=== PATIENT | female | born 1940 | race Caucasian/White ===

== ENCOUNTER 2024-08-30 14:23 | Inpatient (IN) | payer OTHER ==
[~2024-08-30] VITALS: Ht 172.7 cm; Wt 50.3 kg
[2024-08-30 16:10] VITALS: BP 123/69; PULSE 90; RESP 18; TEMP 98.4; O2SAT 100
[2024-08-30] MEDS ORDERED: MELATONIN 3 MG TABLET PO PRN (17:30)
[2024-08-30] MEDS ORDERED: ONDANSETRON 4 MG TABLET PO PRN (17:30)
[2024-08-30 20:30] VITALS: BP 117/65; PULSE 84; RESP 18; TEMP 98.4; O2SAT 96
[2024-08-30] MEDS: -LIDODERM PATCH NOTE- MISC SCH (20:36)
[2024-08-30] MEDS: ETHYL ALCOHOL 62% ANTISEPTIC NASAL SANITIZER 0.6 ML AMPUL NASAL SCH (20:37)
[2024-08-30] MEDS: DOCUSATE SODIUM 100 MG CAPSULE PO SCH (20:38)
[2024-08-30] MEDS: OxyCODONE HCL 5 MG IR TABLET PO PRN (20:39)
[2024-08-30] MEDS: APIXABAN 2.5 MG TABLET PO SCH (20:39)
[2024-08-30] MEDS: METOPROLOL TARTRATE 25 MG TABLET PO SCH (20:39)
[2024-08-30] MEDS: SENNOSIDES 8.6 MG TABLET PO SCH (21:00)
[2024-08-30 22:54] VITALS: O2SAT 96
[2024-08-31 08:00] VITALS: BP 116/65; PULSE 84; RESP 19; TEMP 98.8; O2SAT 99
[2024-08-31] MEDS: ROSUVASTATIN CALCIUM 10 MG TABLET PO SCH (08:41)
[2024-08-31] MEDS: LOSARTAN POTASSIUM 25 MG TABLET PO SCH (08:41)
[2024-08-31] MEDS: MULTIVITAMINS WITH MINERALS, THERAPEUTIC TABLET PO SCH (08:42)
[2024-08-31] MEDS: LIDOCAINE 5% TRANSDERMAL PATCH TD SCH (08:42)
[2024-08-31 08:53] LABS: BASOPHILS % (AUTO) 0.8 % (0.0-2.0); EOSINOPHILS % (AUTO) 2.7 % (1.0-6.0); HEMOGLOBIN 10.1 g/dL (12.0-16.0); LYMPHOCYTES % (AUTO) 19.1 % (22.0-44.0); MEAN CORPUSCULAR HEMOGLOBIN 28.9 pg (26.0-34.0); MEAN CORPUSCULAR HGB CONC 32.5 G/dL (31.0-37.0); MEAN CORPUSCULAR VOLUME 89 fL (80-100); MONOCYTES # (AUTO) 0.6 K/uL (0.1-1.0); MONOCYTES % (AUTO) 11.6 % (2.0-9.0); NEUTROPHILS # (AUTO) 3.4 K/uL (1.8-7.7); NEUTROPHILS % (AUTO) 65.8 % (40.0-70.0); PLATELET COUNT (AUTO) 254 K/uL (150-450); RED BLOOD CELL COUNT(AUTO) 3.48 MIL/uL (4.00-5.20); RED CELL DISTRIBUTION WIDTH 14.1 % (11.5-14.5); WHITE BLOOD COUNT (AUTO) 5.2 K/uL (4.5-11.0)
[2024-08-31 10:45] LABS: ALANINE AMINOTRANSFERASE 53 U/L (12-78); ALBUMIN 2.3 g/dL (3.4-5.0); ALKALINE PHOSPHATASE 184 U/L (46-116); ANION GAP 9 mmol/L (8-16); ASPARTATE AMINOTRANSFERASE 54 U/L (15-37); BILIRUBIN,TOTAL 0.6 mg/dL (0.1-1.0); CARBON DIOXIDE 27 mmol/L (22-29); CHLORIDE 101 mmol/L (98-107); CREATININE 0.42 mg/dL (0.60-1.30); GLOMERULAR FILTR. RATE CALC > 60 mL/min (>60); GLUCOSE,RANDOM 102 mg/dL (70-110); POTASSIUM 3.6 mmol/L (3.5-5.1); SODIUM SERUM 137 mmol/L (136-145); TOTAL PROTEIN, SERUM 5.8 g/dL (6.4-8.2); UREA NITROGEN, BLOOD 12 mg/dL (7-18)
[2024-08-31] MEDS: BISACODYL 10 MG RECTAL RECTAL SUPPOSITORY PR PRN (14:47)
[2024-08-31 20:00] VITALS: BP 100/50; PULSE 95; RESP 18; TEMP 96.8; O2SAT 100; O2SAT 99
[2024-08-31 21:00] VITALS: BP 101/53; PULSE 93; RESP 18; TEMP 96.3; O2SAT 100
[2024-08-31] MEDS: AMOX TR/POT CLAV 875 MG/125 MG TABLET PO SCH (21:29)
[2024-08-31] MEDS: LACTOBAC ACID/BULG/BIFID/THERM TABLET PO SCH (21:30)
[2024-09-01 08:00] VITALS: BP 105/66; PULSE 77; RESP 17; TEMP 98.9; O2SAT 98
[2024-09-01] MEDS: OxyCODONE HCL 5 MG IR TABLET PO PRN (08:44)
[2024-09-01 10:45] VITALS: BP 103/66; PULSE 70; RESP 18; TEMP 98.2; O2SAT 98
[2024-09-01 20:00] VITALS: BP 118/67; PULSE 94; RESP 18; TEMP 98.4; O2SAT 100
[2024-09-01] MEDS: DOCUSATE SODIUM 250 MG CAPSULE PO SCH (21:04)
[2024-09-02 01:26] VITALS: BP 115/67; RESP 18; TEMP 98.1; O2SAT 98
[2024-09-02 07:12] VITALS: BP 109/68; PULSE 88; RESP 18; TEMP 98.3
[2024-09-02 08:10] VITALS: BP 113/57; PULSE 80; RESP 17; TEMP 98.8; O2SAT 99
[2024-09-02] MEDS: LOSARTAN POTASSIUM 25 MG TABLET PO SCH (09:10)
[2024-09-02] MEDS: LACTULOSE 20 GM/30 ML SOLUTION UDCUP PO PRN (16:09)
[2024-09-02 19:42] VITALS: BP 117/67; PULSE 94; RESP 18; TEMP 97.5; O2SAT 96
[2024-09-02 22:57] VITALS: O2SAT 96
[2024-09-03] MEDS: ACETAMINOPHEN 325 MG TABLET PO PRN (05:53)
[2024-09-03 08:20] VITALS: BP 105/69; PULSE 86; RESP 18; TEMP 97.9; O2SAT 96
[2024-09-03] MEDS: [UNRECOGNIZED DRUG - REMARK] PO SCH (09:21)
[2024-09-03 19:41] VITALS: O2SAT 96
[2024-09-03 19:42] VITALS: BP 102/51; PULSE 81; RESP 16; TEMP 98.2; O2SAT 96
[2024-09-03 20:00] VITALS: O2SAT 96
[2024-09-03 21:15] VITALS: BP 102/66; PULSE 87
[2024-09-04 07:40] VITALS: BP 102/58; PULSE 80; RESP 18; TEMP 98.4; O2SAT 99
[2024-09-04 08:00] VITALS: O2SAT 99
[2024-09-04] MEDS: CHOLECALCIFEROL (VIT D3) 1,000 UNITS [25 MCG] TABLET PO SCH (09:26)
[2024-09-04 20:00] VITALS: BP 110/62; PULSE 85; RESP 18; O2SAT 98
[2024-09-05 08:00] VITALS: BP 105/67; PULSE 79; RESP 20; TEMP 98.2; O2SAT 100
[2024-09-05 08:16] LABS: HEMATOCRIT 29.9 % (36-46); HEMOGLOBIN 9.9 g/dL (12.0-16.0); LYMPHOCYTES # (AUTO) 0.9 K/uL (1.0-4.8); MEAN CORPUSCULAR HGB CONC 33.2 G/dL (31.0-37.0); MEAN CORPUSCULAR VOLUME 87 fL (80-100); MONOCYTES # (AUTO) 0.9 K/uL (0.1-1.0); MONOCYTES % (AUTO) 13.7 % (2.0-9.0); NEUTROPHILS # (AUTO) 4.5 K/uL (1.8-7.7); NEUTROPHILS % (AUTO) 70.3 % (40.0-70.0); PLATELET COUNT (AUTO) 412 K/uL (150-450); RED BLOOD CELL COUNT(AUTO) 3.43 MIL/uL (4.00-5.20); RED CELL DISTRIBUTION WIDTH 14.1 % (11.5-14.5); WHITE BLOOD COUNT (AUTO) 6.4 K/uL (4.5-11.0)
[2024-09-05 08:33] LABS: ANION GAP 5 mmol/L (8-16); CALCIUM, TOTAL 9.2 mg/dL (8.8-10.5); CARBON DIOXIDE 32 mmol/L (22-29); CHLORIDE 101 mmol/L (98-107); CREATININE 0.53 mg/dL (0.60-1.30); GLOMERULAR FILTR. RATE CALC > 60 mL/min (>60); GLUCOSE,RANDOM 95 mg/dL (70-110); POTASSIUM 3.7 mmol/L (3.5-5.1); SODIUM SERUM 138 mmol/L (136-145); UREA NITROGEN, BLOOD 17 mg/dL (7-18)
[2024-09-05 19:33] VITALS: BP 96/52; PULSE 69; RESP 18; TEMP 98.2; O2SAT 98
[2024-09-05] MEDS: AQUAPHOR OINTMENT 50 GM TUBE TP PRN (21:49)
[2024-09-05 21:50] VITALS: BP 97/54; PULSE 89
[2024-09-05 23:44] VITALS: O2SAT 98
[2024-09-06] MEDS ORDERED: METO25 PO (05:05)
[2024-09-06] MEDS ORDERED: APIX2.5T PO (05:05)
[2024-09-06] MEDS ORDERED: DOCU-412 PO (05:08)
[2024-09-06] MEDS ORDERED: MULT-1303 PO (05:08)
[2024-09-06] MEDS ORDERED: LIDO-57 TP (05:08)
[2024-09-06] MEDS ORDERED: ROSU10TA72 PO (05:08)
[2024-09-06 08:00] VITALS: BP 110/65; PULSE 75; RESP 18; TEMP 98.4; O2SAT 100
[2024-09-06 09:23] VITALS: BP 110/65; PULSE 75; RESP 18; TEMP 98.4; O2SAT 100
[2024-09-06 20:02] VITALS: BP 111/56; PULSE 106; RESP 18; TEMP 98.8; O2SAT 98
[2024-09-06] MEDS: APIXABAN 2.5 MG TABLET PO SCH (20:11)
[2024-09-06] MEDS: methocarbamoL 500 MG TABLET PO PRN (20:55)
[2024-09-07 03:46] VITALS: O2SAT 98
[2024-09-07 08:00] VITALS: BP 114/63; PULSE 74; RESP 18; TEMP 98.2; O2SAT 96
[2024-09-07 20:06] VITALS: BP 107/55; PULSE 95; RESP 18; TEMP 98.4; O2SAT 98
[2024-09-07 20:36] VITALS: BP 91/58; PULSE 95; RESP 18; O2SAT 96
[2024-09-08] VITALS: O2SAT 98
[2024-09-08 08:00] VITALS: BP 105/57; PULSE 71; RESP 19; TEMP 98.4; O2SAT 97
[2024-09-08] MEDS ORDERED: METO25 PO (12:56)
[2024-09-08] MEDS ORDERED: APIX2.5T PO (12:56)
[2024-09-08] MEDS ORDERED: ROSU10TA72 PO (12:56)
[2024-09-08] MEDS ORDERED: CHOL25TA4 PO (12:56)
[2024-09-08] MEDS ORDERED: MULT-1303 PO (12:56)
[2024-09-08] MEDS ORDERED: DOCU-412 PO (12:56)
[2024-09-08 20:30] VITALS: BP 95/52; PULSE 95; RESP 18; TEMP 98.1; O2SAT 98
[2024-09-08 22:29] VITALS: O2SAT 98
[2024-09-09 06:45] VITALS: BP 101/58; PULSE 79
[2024-09-09 08:50] VITALS: BP 114/61; PULSE 85; RESP 18; TEMP 98.1; O2SAT 97
== END 2024-09-09 12:05 | disposition home health service (06) | DRG 949 ==
LOC: 2WR 16:08
PROVIDERS: ADMIT Physical Medicine & Rehabilitation; ATTEND Physical Medicine & Rehabilitation
DX: S06.9X9D Unspecified intracranial injury with loss of consciousness of unspecified duration, subsequent encounter (principal); D62 Acute posthemorrhagic anemia; E46 Unspecified protein-calorie malnutrition; Z68.1 Body mass index [BMI] 19.9 or less, adult; S42.211D Unspecified displaced fracture of surgical neck of right humerus, subsequent encounter for fracture with routine healing; W18.39XD Other fall on same level, subsequent encounter; S01.511D Laceration without foreign body of lip, subsequent encounter; S02.40CD Maxillary fracture, right side, subsequent encounter for fracture with routine healing; S52.121D Displaced fracture of head of right radius, subsequent encounter for closed fracture with routine healing; E78.5 Hyperlipidemia, unspecified; I07.1 Rheumatic tricuspid insufficiency; I10 Essential (primary) hypertension; I48.91 Unspecified atrial fibrillation; M81.0 Age-related osteoporosis without current pathological fracture; R62.7 Adult failure to thrive; K59.00 Constipation, unspecified; Z74.09 Other reduced mobility; Z96.611 Presence of right artificial shoulder joint; M25.422 Effusion, left elbow; R26.81 Unsteadiness on feet; D64.9 Anemia, unspecified; E78.00 Pure hypercholesterolemia, unspecified; Z79.01 Long term (current) use of anticoagulants
CPT/HCPCS: 80048; 80053; 85025; 87081; 92507; 92523; 97110; 97112; 97116; 97162; 97167; 97530; 97535; 99366